=== PATIENT | male | born 1970 | race Caucasian/White ===

== ENCOUNTER 2016-09-06 11:29 | Emergency (ER) | payer MEDICAID ==
[~2016-09-06] VITALS: Ht 172.7 cm; Wt 54.4 kg
[~2016-09-06 11:29] MED LIST: ACET-907 PO; OMEP40CA PO; ZOLP10TA2 PO
[2016-09-06] MEDS ORDERED: ONDANSETRON 4 MG TAB.RAPDIS ONE (11:49)
[2016-09-06] MEDS ORDERED: LEVETIRACETAM (250 MG) 250 MG TABLET PO ONE (11:49)
[2016-09-06] MEDS: LEVETIRACETAM (250 MG) 250 MG TABLET PO ONE (11:58)
[2016-09-06] MEDS: ONDANSETRON 4 MG TAB.RAPDIS SL ONE (11:58)
[2016-09-06 12:48] LABS: DIFF TOTAL % 100 %; EOSINOPHILS # (AUTO) 0.2 /CMM (0.0-0.7); EOSINOPHILS % (AUTO) 4.9 % (0.0-6.0); HEMATOCRIT 31 % (39-51); HEMOGLOBIN 9.8 g/dL (13.5-17.5); LYMPHOCYTES # (AUTO) 1.3 /CMM (0.8-4.8); LYMPHOCYTES % (AUTO) 41.9 % (20.0-44.0); MEAN CORPUSCULAR HEMOGLOBIN 24 PG (26.0-33.0); MEAN CORPUSCULAR HGB CONC 32 g/dl (31.0-36.0); MEAN CORPUSCULAR VOLUME 76 fL (80-96); MONOCYTES # (AUTO) 0.2 /CMM (0.1-1.30); NEUTROPHILS # (AUTO) 1.5 /CMM (1.8-8.9); NEUTROPHILS % (AUTO) 47.2 % (43.0-81.0); PLATELET COUNT (AUTO) 224 /CMM (150-450); RED BLOOD CELL COUNT(AUTO) 4.05 MIL/uL (4.5-6.0); WHITE BLOOD COUNT (AUTO) 3.1 K/uL (4.3-11.0)
[2016-09-06 13:06] LABS: ALBUMIN 3.2 g/dL (3.4-5.0); CREATININE 0.8 mg/dL (0.6-1.3)
[2016-09-06 13:17] LABS: BILIRUBIN,DIRECT 0.1 mg/dL (0.0-0.2); BILIRUBIN,TOTAL 0.3 mg/dL (0.2-1.0); INDIRECT BILIRUBIN 0.2 mg/dL (0.0-1.1); TOTAL PROTEIN, SERUM 6.6 g/dL (6.4-8.2)
[2016-09-06] MEDS ORDERED: POTASSIUM CHLORIDE 20 MEQ TAB.PRT.SR PO ONE (13:31)
[2016-09-06] MEDS: POTASSIUM CHLORIDE 20 MEQ TAB.PRT.SR PO ONE (13:34)
[2016-09-06 13:39] VITALS: BP 138/88
[2016-09-06] MEDS ORDERED: MAG HYDROX/AL HYDROX/SIMETH 30 ML UDC ONE (13:41)
[2016-09-06] MEDS ORDERED: LIDOCAINE VISCOUS 2% UD 15 ML UDC ONE (13:41)
[2016-09-06 13:54] LABS: EOSINOPHILS % (MANUAL) 6 % (0-4); LYMPHOCYTES % (MANUAL) 18 % (16-48)
[2016-09-06 13:55] LABS: PLATELET ESTIMATE ADEQUATE
[2016-09-06 13:58] LABS: HYPOCHROMASIA 2+
[2016-09-06 13:59] LABS: ANISOCYTOSIS 2+
[2016-09-06] MEDS ORDERED: LIDOCAINE VISCOUS 2% UD 15 ML UDC MM ONE (14:00)
[2016-09-06] MEDS ORDERED: MAG HYDROX/AL HYDROX/SIMETH 30 ML UDC PO ONE (14:00)
== END 2016-09-06 13:54 | disposition home or self-care (01) ==
LOC: ER 11:31
DX: R56.9 Unspecified convulsions (principal); E87.6 Hypokalemia; E11.9 Type 2 diabetes mellitus without complications; R51 Headache; I10 Essential (primary) hypertension; Z88.0 Allergy status to penicillin
CPT/HCPCS: 36415; 80048-TC; 80076-TC; 85025-TC; A4606; Q0162; Z7610